=== PATIENT | female | born 2000 | race Caucasian/White ===

== ENCOUNTER 2024-03-07 09:07 | Emergency (ER) | payer OTHER ==
[2024-03-07 09:13] VITALS: BP 109/63; PULSE 66; RESP 18; TEMP 98; BMI 27.4
[2024-03-07] MEDS ORDERED: DIPHTH,PERTUSS(ACELL),TET 0.5 ML DISP.SYRIN IM ONE (09:38)
[2024-03-07] MEDS: DIPHTH,PERTUSS(ACELL),TET 0.5 ML DISP.SYRIN IM ONE (09:39)
[2024-03-07] MEDS ORDERED: HIV POST EXPOSURE PROPHYLAXIS KIT PO ONE (10:04)
[2024-03-07 10:05] LABS: BASO % 0.9 % (0-2.0); EOS % 2.8 % (0-4.5); HEMATOCRIT 35.8 % (32.4-45.2); HEMOGLOBIN 12.7 GM/dL (10.7-15.3); LYMPH % 24.8 % (8-40); MCH 31.9 pg (25.7-33.7); MCHC 35.4 g/dl (32.0-36.0); MONO % 6.2 % (3.8-10.2); NEUT % 65.3 % (42.8-82.8); PLATELET COUNT 319 10^3/uL (134-434); RBC 3.97 M/mm3 (3.60-5.2); RDW 13.3 % (11.6-15.6); WHITE BLOOD COUNT 8.8 K/mm3 (4.0-10.0)
[2024-03-07] MEDS: HIV POST EXPOSURE PROPHYLAXIS KIT PO ONE (10:08)
[2024-03-07 10:29] LABS: POTASSIUM 4.1 mmol/L (3.5-5.1)
[2024-03-07 10:31] LABS: CALCIUM 8.9 mg/dL (8.5-10.1)
[2024-03-07 10:32] LABS: BLOOD UREA NITROGEN 15.6 mg/dL (7-18)
[2024-03-07 10:34] LABS: CREATININE 0.9 mg/dL (0.55-1.3)
[2024-03-07 10:36] LABS: BILIRUBIN,TOTAL 0.3 mg/dL (0.2-1); TOT PROT 7.7 g/dl (6.4-8.2)
[2024-03-07 18:04] LABS: HIV INTERPRETATION NEGATIVE (NEGATIVE)
== END 2024-03-07 10:15 | disposition home or self-care (01) ==
LOC: JERFT 09:07
PROC: 3E0234Z Introduction of Serum, Toxoid and Vaccine into Muscle, Percutaneous Approach (ICD-10-PCS; principal; 2024-03-07)
DX: S61.233A Puncture wound without foreign body of left middle finger without damage to nail, initial encounter (principal); W46.1XXA Contact with contaminated hypodermic needle, initial encounter; Z23 Encounter for immunization
CPT/HCPCS: 36415; 80053; 84703; 85025; 86704; 86803; 87340; 87389; 87517; 90715; 99283-25